=== PATIENT | female | born 1985 | race Caucasian/White ===

== ENCOUNTER 2023-02-14 06:27 | Emergency (ER) | payer SELFPAY ==
[~2023-02-14] VITALS: Ht 177.8 cm; Wt 81.6 kg
[2023-02-14] MEDS ORDERED: dexaMETHasone SOD PHOSPHATE 10 MG/ML VIAL ONE (06:45)
[2023-02-14] MEDS ORDERED: METOCLOPRAMIDE HCL 10 MG/2 ML VIAL ONE (06:45)
[2023-02-14] MEDS ORDERED: ACETAMINOPHEN ES 500 MG TABLET ONE (06:45)
[2023-02-14] MEDS ORDERED: diphenhydrAMINE HCL 50 MG/ML VIAL ONE (06:45)
[2023-02-14] MEDS ORDERED: IV NS 0.9% 250 ML IV ONE (06:47)
[2023-02-14] MEDS ORDERED: IOHEXOL-350 100 ML VIAL IV ONE (06:47)
[2023-02-14] MEDS ORDERED: CT SWABBABLE VALVE TRANS SET 1 EA INFUS.SET MC ONE (06:47)
[2023-02-14] MEDS ORDERED: diphenhydrAMINE HCL 50 MG/ML VIAL IV ONE (07:00)
[2023-02-14] MEDS ORDERED: ACETAMINOPHEN ES 500 MG TABLET PO ONE (07:00)
[2023-02-14] MEDS ORDERED: IV NS 0.9% 1,000 ML BAG IV ONE (07:00)
[2023-02-14] MEDS ORDERED: dexaMETHasone SOD PHOSPHATE 10 MG/ML VIAL IV ONE (07:00)
[2023-02-14] MEDS ORDERED: METOCLOPRAMIDE HCL 10 MG/2 ML VIAL IV ONE (07:00)
[2023-02-14 07:17] LABS: BASOPHILS # (AUTO) 0.1 K/uL (0.0-0.2); BASOPHILS % (AUTO) 0.7 % (0.0-2.0); EOSINOPHILS # (AUTO) 0.2 K/uL (0.0-0.7); EOSINOPHILS % (AUTO) 2.3 % (0.0-6.0); HEMATOCRIT 39 % (33-45); LYMPHOCYTES # (AUTO) 2.3 K/uL (0.8-4.8); MEAN CORPUSCULAR HEMOGLOBIN 27 PG (26.0-33.0); MEAN CORPUSCULAR HGB CONC 33 g/dl (31.0-36.0); MEAN CORPUSCULAR VOLUME 82 fL (82-100); MONOCYTES # (AUTO) 0.5 K/uL (0.1-1.30); MONOCYTES % (AUTO) 6.7 % (2.0-12.0); NEUTROPHILS # (AUTO) 4.2 K/uL (1.8-8.9); NEUTROPHILS % (AUTO) 58.3 % (43.0-81.0); PLATELET COUNT (AUTO) 232 K/uL (150-450); RED BLOOD CELL COUNT(AUTO) 4.81 MIL/uL (4.0-5.2); RED CELL DISTRIBUTION WIDTH 14.6 % (11.5-15.0); WHITE BLOOD COUNT (AUTO) 7.3 K/uL (4.3-11.0)
[2023-02-14 07:30] LABS: INR 1.08 (0.91-1.10); PARTIAL THROMBOPLASTIN TIME 34.2 SEC (24.3-34.3); PROTHROMBIN TIME 11.4 SECS (9.2-11.1)
[2023-02-14 07:32] LABS: CALCIUM, SERUM 9.6 mg/dL (8.5-10.1); CREATININE 0.9 mg/dL (0.6-1.3); POTASSIUM 3.8 mmol/L (3.5-5.1)
[2023-02-14 07:39] LABS: BILIRUBIN,DIRECT 0.2 mg/dL (0.0-0.2); BILIRUBIN,TOTAL 0.5 mg/dL (0.2-1.0); TOTAL PROTEIN, SERUM 7.7 g/dL (6.4-8.2)
[2023-02-14 09:59] VITALS: TEMP 97.7
[2023-02-14] MEDS ORDERED: IBUP-1955 PO (10:42)
[2023-02-14 11:00] VITALS: BP 109/68; O2SAT 100
== END 2023-02-14 11:10 | disposition home or self-care (01) ==
LOC: ER 06:31
DX: S09.90XA Unspecified injury of head, initial encounter (principal); R51.9 Headache, unspecified; W18.30XA Fall on same level, unspecified, initial encounter; Y93.89 Activity, other specified; Y92.89 Other specified places as the place of occurrence of the external cause; Y99.8 Other external cause status
CPT/HCPCS: 99285; 72125; 96374; 96375; 96361; 70498; 70496; 85025; 80048; 80076; 36415; 85730; 82962; 70450; J1100; J1200; J2765; J7030; J7050; J7040; Q9967

== ENCOUNTER 2023-02-17 07:41 | Emergency (ER) | payer SELFPAY ==
[~2023-02-17] VITALS: Ht 177.8 cm; Wt 83.9 kg
[~2023-02-17 07:41] MED LIST: IBUP-1955 PO
[2023-02-17] MEDS ORDERED: KETOROLAC TROMETHAMINE INJ 30 MG/ML VIAL IM ONE (08:00)
[2023-02-17] MEDS ORDERED: KETOROLAC TROMETHAMINE INJ 30 MG/ML VIAL ONE (08:20)
[2023-02-17] MEDS ORDERED: NAPR-1009 PO (08:45)
[2023-02-17 09:20] VITALS: BP 110/85; TEMP 97.9; O2SAT 99
== END 2023-02-17 09:20 | disposition home or self-care (01) ==
LOC: ER 07:45
DX: M54.50 Low back pain, unspecified (principal); Z79.899 Other long term (current) drug therapy; Z60.2 Problems related to living alone; W18.39XA Other fall on same level, initial encounter; Y93.89 Activity, other specified; Y92.89 Other specified places as the place of occurrence of the external cause; Y99.8 Other external cause status
CPT/HCPCS: 99283; 96372; 72100; J1885